=== PATIENT | female | born 1965 | race Caucasian/White ===

== ENCOUNTER 2021-02-03 06:33 | Inpatient (IN) | payer SELFPAY ==
[2021-02-03 07:19] LABS: Hematocrit 46.7 % (33.0-51.0); Mean Corpuscular HGB 32.5 pg (26.0-34.0); Mean Corpuscular HGB Conc 32.1 g/dL (31.5-36.5); Mean Corpuscular Volume 101 fL (80-100); Mean Platelet Volume 11.5 fL (9.1-12.4); Platelet Count 138 K/mm3 (150-400); RDW Coefficient Variation 12.7 % (11.7-14.2); RDW Standard Deviation 47.7 fL (35.1-46.3); Red Blood Cell Count 4.62 M/mm3 (3.80-5.20); White Blood Cell Count 7.76 K/mm3 (4.00-11.30)
[2021-02-03 07:34] LABS: Alanine Aminotransfer (ALT/SGP 27 U/L (12-78); Albumin, Blood 3.6 g/dL (3.4-5.0); Albumin/Globulin Ratio 0.9 (0.8-1.8); Alk Phos 73 U/L (50-136); Anion Gap 6 mmol/L (6-16); Aspartate Aminotrans (AST/SGOT 19 U/L (12-37); Bilirubin, Total 0.2 mg/dL (0.1-1.0); Blood Urea Nitrogen 10 mg/dL (8-24); Bun/Creatinine Ratio 13.8 (12.0-20.0); CHOL/HDL RATIO 3.5; CO2, Blood 24 mmol/L (21-32); Chloride, Blood 112 mmol/L (98-108); Cholesterol 237 mg/dL (50-200); Creatinine, Blood 0.72 mg/dL (0.40-1.00); Globulin, Blood 3.9 g/dL (2.2-4.0); Glomerular Filtration Rate >60 (60-); Glucose, Blood 85 mg/dL (70-99); HDL Cholesterol 67 mg/dL (>39); LDL/HDL RATIO Unable to Calculate; Low Density Lipoprotein Chol Unable to Calculate mg/dL (0-110); Magnesium, Blood 2.1 mg/dL (1.6-2.4); Potassium, Blood 3.5 mmol/L (3.5-5.5); Sodium, Blood 142 mmol/L (136-145); Total Protein, Blood 7.5 g/dL (6.4-8.2); Triglycerides 403 mg/dL (30-160); Troponin I <0.015 ng/mL (0.000-0.040); Very Low Density Lipoprot Chol Unable to Calculate mg/dL (6-32)
[2021-02-03 07:36] LABS: International Normalized Ratio 0.93; Prothrombin Time Results 9.8 Sec (9.7-11.5)
--- NOTE | 2021-02-03 09:12 | NUR ---
ICU ADMISSION PT ARRIVES TO ICU FROM SCHEDULING AGENT AT 0812 POST PCI. ONE STENT PLACED TO MID RCA. TR BAND c 15 ML OF AIR TO RIGHT RADIAL. CAP REFILL<3 SEC. PT DENIES NUMBNESS OR TINGLING. SOFT, NON TENDER. NO SWELLING OR HEMATOMA NOTED. ARM BOARD IN PLACE. EDUATION ON LIMITED ROM. PT DENIES CHEST PAIN, SOB, NAUSEA OR OTHER SYMPTOMS STATES SHE IS FEELING MUCH BETTER THAN THIS AM. A&OX 4. LUNGS CLEAR. NSR ON MONITOR, RATE 70'S. BP STABLE. MAEW. NS STARTED AT 200 ML/HR. ORIENTED TO ROOM. DENIES NEEDS. WILL CONTINUE TO MONITOR.
[2021-02-03 10:15] LABS: Calcium, Ionized (POC) 1.17 mmol/L (1.10-1.46); Chloride (POC) 108 mmol/L (98-108); Glucose (ISTAT POC) 84 mg/dL (70-99); Hemoglobin (POC) 15.6 g/dL (12.0-16.0); Potassium (POC) 3.5 mmol/L (3.5-5.5); Sodium (POC) 143 mmol/L (135-148); Total CO2 (POC) 23 mmol/L (21-32)
--- NOTE | 2021-02-03 13:32 | NUR ---
TR BAND REMOVAL TR BAND DEFLATED AND REMOVED. SMALL AREA OF ECCHYMOSIS NOTED DISTAL TO PUNCTURE SITE. NO OTHER ABNORMALITIES. OPSITE AND ARM BOARD PLACED.
--- NOTE | 2021-02-03 17:13 | NUR ---
Pt transferred from ICU 5 to PCU 6. Alert, oriented, pleasantly conversant. present in room, pleasantly conversant as well. Pt denies any discomfort or dyspnea at this time. TR site is covered in Op Site, small amount of faint bruising and small hematoma palpable at the site. Distal pulses palpable, brisk capillary refill and fingers of hands and feet are pink, warm and dry. Lung sounds clear, heart sounds s1, s2 without noted murmur nor extra heart sounds. No peripheral edema noted. Pt ambulatory to the bathroom to void, without difficulty.
--- NOTE | 2021-02-03 17:13 | NUR ---
TRANSFER TO PCU NO ACUTE CHANGES DURING ICU STAY. RADIAL ACCESS STABLE. VSS. REPORT TO MINERVA RN, PT TRANSFERRED TO PCU. ALL BELONGINGS SENT c PT.
--- NOTE | 2021-02-03 17:30 | NUR ---
ECHOCARDIOGRAM COMPLETE
--- NOTE | 2021-02-03 20:48 | NUR ---
Assumed care of pt at 1900. Radial site C/D/I with no pain. Radial pulses equal bilaterally +2. VSS. Denies at CP, resting comfortably in bed.
--- NOTE | 2021-02-04 02:40 | NUR ---
A/OX4, ABLE TO AMBULATE TO [facility] [place]. CALLS APPROPRIATELY FOR ASSISTANCE. DENIES ANY CP. SINUS AVG 78 VIA TELE. L RADIAL SITE C/D/I WITH EQUAL PULSES +2 BILATERALLY. PATIENT HAD A SMALL RUN OF VTACH (4 BEAT) EARLIER IN THE NIGHT. PATIENT IS EAGER TO OBTAIN HEALTH INSURANCE AND TO QUIT SMOKING. TROPONIN WAS 12.900 - DR. BUITRAGO NOTIFIED, ORDER FOR REPEAT TROPONIN AT 6AM. WILL REPORT TO DAYSHIFT.
[2021-02-04 06:08] LABS: BASOPHILS ABSOLUTE AUTO 0.02 K/mm3 (0.00-0.23); BASOPHILS PERCENT AUTO 0 % (0-2); EOSINOPHILS ABSOLUTE AUTO 0.06 K/mm3 (0.00-0.68); EOSINOPHILS PERCENT AUTO 1 % (0-6); Hematocrit 39.9 % (33.0-51.0); Hemoglobin 13.4 g/dL (11.5-16.0); IMMATURE GRAN ABSOLUTE AUTO 0.02 K/mm3 (0.00-0.10); IMMATURE GRAN PERCENT AUTO 0 % (0-1); LYMPHOCYTES ABSOLUTE AUTO 1.75 K/mm3 (0.84-5.20); LYMPHOCYTES PERCENT AUTO 25 % (21-46); MONOCYTES ABSOLUTE AUTO 0.36 K/mm3 (0.16-1.47); MONOCYTES PERCENT AUTO 5 % (4-13); Mean Corpuscular HGB 32.8 pg (26.0-34.0); Mean Corpuscular HGB Conc 33.6 g/dL (31.5-36.5); Mean Corpuscular Volume 98 fL (80-100); Mean Platelet Volume 11.6 fL (9.1-12.4); NEUTROPHILS ABSOLUTE AUTO 4.86 K/mm3 (1.96-9.15); NEUTROPHILS PERCENT AUTO 69 % (41-73); Platelet Count 116 K/mm3 (150-400); RDW Coefficient Variation 12.8 % (11.7-14.2); RDW Standard Deviation 46.3 fL (35.1-46.3); Red Blood Cell Count 4.08 M/mm3 (3.80-5.20); White Blood Cell Count 7.07 K/mm3 (4.00-11.30)
[2021-02-04 07:03] LABS: Anion Gap 5 mmol/L (6-16); Blood Urea Nitrogen 16 mg/dL (8-24); Bun/Creatinine Ratio 24.4 (12.0-20.0); CO2, Blood 21 mmol/L (21-32); Calcium, Blood 8.6 mg/dL (8.5-10.1); Chloride, Blood 113 mmol/L (98-108); Creatinine, Blood 0.66 mg/dL (0.40-1.00); Glomerular Filtration Rate >60 (60-); Glucose, Blood 102 mg/dL (70-99); Sodium, Blood 139 mmol/L (136-145)
[2021-02-04] MEDS ORDERED: ASPI81CH PO (10:19)
[2021-02-04] MEDS ORDERED: ATOR40TA PO (10:20)
[2021-02-04] MEDS ORDERED: CLOP75 PO (10:21)
[2021-02-04] MEDS ORDERED: Nicoderm Cq1 EAC1 TOP (10:22)
--- NOTE | 2021-02-04 10:47 | NUR ---
SHIFT NOTE/ DISCHARGE NOTE A&O, PLEASANT WITH CARES. TELE- SR 70S. DENIES CHEST PAIN, NAUSEA OR SOB TODAY. RIGHT RADIAL SITE LOOKS CLEAN DRY AND INTACT. PULSES STRONG. AM TROP 7.73, TRENDING DOWN FROM 12.9. DISCHARGE INFORMATION REVIEWED WITH PT INCLUDING NEW MEDS AND RESTRICTIONS ON THE RIGHT RADIAL SITE. INFORMED PT TO F/U OUTPT WITH CARDIOLOGY AND PHONE NUMBER GIVEN JUST IN CASE SHE DOES NOT HEAR FROM THEIR OFFICE FIRST. AM PLAVIX GIVEN PER ORDERS. PIVS REMOVED.
== END 2021-02-04 11:15 | disposition home or self-care (01) | DRG 247 ==
LOC: ER 06:33 → ICUW 06:55 → ICUE 06:55 → PCU 16:54
PROVIDERS: Emergency Medicine; Pharmacist; ADMIT Internal Medicine Cardiovascular Disease
PROC: 4A023N7 Measurement of Cardiac Sampling and Pressure, Left Heart, Percutaneous Approach (ICD-10-PCS; principal; 2021-02-03)
PROC: 027034Z Dilation of Coronary Artery, One Artery with Drug-eluting Intraluminal Device, Percutaneous Approach (ICD-10-PCS; 2021-02-03)
PROC: B2111ZZ Fluoroscopy of Multiple Coronary Arteries using Low Osmolar Contrast (ICD-10-PCS; 2021-02-03)
DX: I21.29 ST elevation (STEMI) myocardial infarction involving other sites (principal); I25.10 Atherosclerotic heart disease of native coronary artery without angina pectoris; F17.200 Nicotine dependence, unspecified, uncomplicated; R93.1 Abnormal findings on diagnostic imaging of heart and coronary circulation
CPT/HCPCS: 36415; 71045; 76937; 80047; 80048; 80053; 80061; 83735; 84484; 85014; 85025; 85027; 85347; 85610; 85730; 86850; 86900; 86901; 93005; 93010; 93306; 93454; 99152; 99153; 99285-25; A9270; C1725; C1769; C1874; C1887; C1894; C9606; J0461; J1644; J2250; J2370; J3010; J7030; J7050; Q9967